=== PATIENT | male | born 1985 | race African-American/Black ===

== ENCOUNTER 2017-04-03 13:22 | Emergency (ER) | payer OTHER ==
[2017-04-03 15:26] LABS: Hematocrit 49 % (42-52); Hemoglobin 15.8 g/dl (14.0-18.0); Mean Corpuscular HGB Conc 33 g/dl (31-36); Mean Corpuscular Hemoglobin 30 pg (27-31); Mean Corpuscular Volume 92 fL (80-94); Mean Platelet Volume 9 um3 (7.4-10.4); Red Blood Count 5.25 10^6/ul (4.0-5.4); Red Cell Distribution Width 13 % (10.5-15); White Blood Count 6.7 10^3/ul (3.5-10.8)
[2017-04-03 15:37] LABS: ALT 38 U/L (7-52); AST 31 U/L (13-39); Albumin 4.5 g/dL (3.2-5.2); Alkaline Phosphatase 47 U/L (34-104); Anion Gap 10 mmol/L (2-11); BUN/Creatinine Ratio 13.3 (8-20); Blood Urea Nitrogen 14 mg/dL (6-24); C Reactive Protein < 1.00 mg/L (< 5.00); CO2 Carbon Dioxide 24 mmol/L (22-32); Calcium 9.6 mg/dL (8.6-10.3); Chloride 102 mmol/L (101-111); EGFR African American 107.4 (>60); EGFR Non-African American 83.5 (>60); Globulin 3.1 g/dL (2-4); Glucose 65 mg/dL (70-100); Lipase 16 U/L (11.0-82.0); Potassium 4.2 mmol/L (3.5-5.0); Sodium 136 mmol/L (133-145); Total Protein 7.6 g/dL (6.4-8.9)
[2017-04-03 15:38] LABS: Troponin I 0.01 ng/mL (<0.04)
--- NOTE | 2017-04-03 15:47 | RAD ---
Indication: Chest pain. 2 views of the chest including dual energy PA views demonstrate no mediastinal shift. Heart is of normal size and configuration. Lung heaton demonstrate no pleural fluid, pneumonia or pneumothorax. IMPRESSION: No active cardiopulmonary disease is noted.
[2017-04-03] MEDS ORDERED: Ketorolac INJ* 30 MG/ML 1 ML VIAL IV ONE (18:26)
[2017-04-03] MEDS ORDERED: Sucralfate TAB* 1 GM PO ONE (20:13)
[2017-04-03] MEDS ORDERED: Iohexol 300* (CONTRAST) 10 ML SDV IV ONE (21:37)
[2017-04-03] MEDS ORDERED: Pantoprazole IV* 40 MG IV ONE (21:48)
--- NOTE | 2017-04-03 21:48 | ED ---
Samuel Doyle Thomas, scribed for Owen Bettencourt MD on 04/03/17 at 1521 . HPI Chest Pain - HPI Summary HPI Summary: The pt is a 31 y/o M accompanied by police and presenting to the ED c/o L-sided CP that began this AM at 07:00 when he woke up. The pain radiates to his LUQ. The pain is rated 7/10. The pain is described as burning and sharp. The pain is aggravated and alleviated by nothing. The patient took [employer] HE[employer]PER[employer]. Pt additionally c/o dizziness, numbness (R arm). Pt denies nausea, SOB, and diaphoresis. He is not on any meds at this time. He is an inmate at [facility]. - History of Current Complaint Chief Complaint: EDChestPainROMI Time Seen by Provider: 04/03/17 15:13 Hx Obtained From: Patient, Other: - police present in the room Onset/Duration: Started Hours Ago - this AM when he woke up Timing: Constant Current Severity: Moderate Pain Intensity: 7 Pain Scale Used: 0-10 Numeric Chest Pain Radiates: Yes Chest Pain Radiates To:: Other - LUQ Character: Burning, Sharp/Stabbing Aggravating Factor(s): Nothing Alleviating Factor(s): Nothing Associated Signs and Symptoms: Positive: Chest Pain, Numbness - R arm, Dizziness. Negative: Shortness of Breath, Diaphoresis, Nausea - Allergy/Home Medications Allergies/Adverse Reactions: Allergies Allergy/AdvReac Type Severity Reaction Status Date / Time No Known Allergies Allergy Verified 04/03/17 13:25 Home Medications: Home Medications Mirtazapine TAB* [Remeron TAB*] 15 mg PO BEDTIME 04/03/17 [History Confirmed 12/15] PMH/Surg Hx/FS Hx/Imm Hx Previously Healthy: No Cardiovascular History: Reports: Hx Hypertension GI History: Reports: Hx Ulcer - Surgical History Surgery Procedure, Year, and Place: When asked his surgical history, the patient does not know Infectious Disease History: No Infectious Disease History: Denies: Traveled Outside the [place] in Last 30 Days - Family History Known Family History: Positive: Other - both his parents when he was young but he is unaware of FHx - Social History Lives: [place] - inmate at [facility] Alcohol Use: None Substance Use Type: Reports: None Smoking Status (MU): Never Smoked Tobacco Review of Systems Negative: Fever, Skin Diaphoresis Positive: Chest Pain - 7/10, sharp/burning, began this AM at 07:00, radiates to LUQ Negative: Shortness Of Breath Negative: Nausea Neurological: Other - POS: dizziness Positive: Numbness - R arm All Other Systems Reviewed And Are Negative: Yes Physical Exam Triage Information Reviewed: Yes Vital Signs On Initial Exam: Initial Vitals Temp Pulse Resp BP Pulse Ox 97.9 F 82 16 145/81 98 04/03/17 13:25 04/03/17 13:25 04/03/17 13:25 04/03/17 13:25 04/03/17 13:25 Vital Signs Reviewed: Yes Appearance: Positive: Well-Appearing, Pain Distress Skin: Positive: Warm, Skin Color Reflects Adequate Perfusion, Dry Head/Face: Positive: Normal Head/Face Inspection Eyes: Positive: Normal ENT: Positive: Normal ENT inspection Neck: Positive: Supple, Nontender Respiratory/Lung Sounds: Positive: Clear to Auscultation, Breath Sounds Present Cardiovascular: Positive: RRR Abdomen Description: Positive: Nontender, Soft Bowel Sounds: Positive: Present Musculoskeletal: Positive: Normal Neurological: Positive: Normal Psychiatric: Positive: Normal, Affect/Mood Appropriate - Jailene Coma Scale Coma Scale Total: 15 Diagnostics - Vital Signs Vital Signs Temp Pulse Resp BP Pulse Ox 04/03/17 14:32 98.9 F 84 16 126/80 98 04/03/17 13:25 97.9 F 82 16 145/81 98 - Laboratory Lab Results: Lab Results 04/03/17 04/03/17 04/03/17 Range/Units 14:45 14:45 14:45 WBC 6.7 (3.5-10.8) 10^3/ul RBC 5.25 (4.0-5.4) 10^6/ul Hgb 15.8 (14.0-18.0) g/dl Hct 49 (42-52) % MCV 92 (80-94) fL MCH 30 (27-31) pg MCHC 33 (31-36) g/dl RDW 13 (10.5-15) % Plt Count 301 (150-450) 10^3/ul MPV 9 (7.4-10.4) um3 Neut % (Auto) 60.8 (38-83) % Lymph % (Auto) 25.0 (25-47) % Charlton % (Auto) 7.5 (1-9) % Eos % (Auto) 5.9 (0-6) % Baso % (Auto) 0.8 (0-2) % Absolute Neuts (auto) 4.1 (1.5-7.7) 10^3/ul Absolute Lymphs (auto) 1.7 (1.0-4.8) 10^3/ul Absolute Monos (auto) 0.5 (0-0.8) 10^3/ul Absolute Eos (auto) 0.4 (0-0.6) 10^3/ul Absolute Basos (auto) 0.1 (0-0.2) 10^3/ul Absolute Nucleated RBC 0.01 10^3/ul Nucleated RBC % 0.1 Sodium 136 (133-145) mmol/L Potassium 4.2 (3.5-5.0) mmol/L Chloride 102 (101-111) mmol/L Carbon Dioxide 24 (22-32) mmol/L Anion Gap 10 (2-11) mmol/L BUN 14 (6-24) mg/dL Creatinine 1.05 (0.67-1.17) mg/dL Est GFR ( Amer) 107.4 (>60) Est GFR (Non-Af Amer) 83.5 (>60) BUN/Creatinine Ratio 13.3 (8-20) Glucose 65 L (70-100) mg/dL Lactic Acid 1.3 (0.5-2.0) mmol/L Calcium 9.6 (8.6-10.3) mg/dL Total Bilirubin 1.40 H (0.2-1.0) mg/dL AST 31 (13-39) U/L ALT 38 (7-52) U/L Alkaline Phosphatase 47 (34-104) U/L Troponin I 0.01 (<0.04) ng/mL C-Reactive Protein < 1.00 (< 5.00) mg/L Total Protein 7.6 (6.4-8.9) g/dL Albumin 4.5 (3.2-5.2) g/dL Globulin 3.1 (2-4) g/dL Albumin/Globulin Ratio 1.5 (1-3) Lipase 16 (11.0-82.0) U/L /12/15 Range/Units 19:35 WBC (3.5-10.8) 10^3/ul RBC (4.0-5.4) 10^6/ul Hgb (14.0-18.0) g/dl Hct (42-52) % MCV (80-94) fL MCH (27-31) pg MCHC (31-36) g/dl RDW (10.5-15) % Plt Count (150-450) 10^3/ul MPV (7.4-10.4) um3 Neut % (Auto) (38-83) % Lymph % (Auto) (25-47) % Charlton % (Auto) (1-9) % Eos % (Auto) (0-6) % Baso % (Auto) (0-2) % Absolute Neuts (auto) (1.5-7.7) 10^3/ul Absolute Lymphs (auto) (1.0-4.8) 10^3/ul Absolute Monos (auto) (0-0.8) 10^3/ul Absolute Eos (auto) (0-0.6) 10^3/ul Absolute Basos (auto) (0-0.2) 10^3/ul Absolute Nucleated RBC 10^3/ul Nucleated RBC % Sodium (133-145) mmol/L Potassium (3.5-5.0) mmol/L Chloride (101-111) mmol/L Carbon Dioxide (22-32) mmol/L Anion Gap (2-11) mmol/L BUN (6-24) mg/dL Creatinine (0.67-1.17) mg/dL Est GFR ( Amer) (>60) Est GFR (Non-Af Amer) (>60) BUN/Creatinine Ratio (8-20) Glucose (70-100) mg/dL Lactic Acid (0.5-2.0) mmol/L Calcium (8.6-10.3) mg/dL Total Bilirubin (0.2-1.0) mg/dL AST (13-39) U/L ALT (7-52) U/L Alkaline Phosphatase (34-104) U/L Troponin I 0.00 (<0.04) ng/mL C-Reactive Protein (< 5.00) mg/L Total Protein (6.4-8.9) g/dL Albumin (3.2-5.2) g/dL Globulin (2-4) g/dL Albumin/Globulin Ratio (1-3) Lipase (11.0-82.0) U/L Result Diagrams: 04/03/17 14:45 04/03/17 14:45 Lab Statement: Any lab studies that have been ordered have been reviewed, and results considered in the medical decision making process. - Radiology CXR Xray Interpretation: No Acute Changes - no active cardiopulmonary disease is noted Radiology Interpretation Completed By: Radiologist - EKG 13:35 Cardiac Rate: NL - 90 BPM EKG Interpretation: NSR. Some baseline artifact. Nonspecific changes inferiorly. 13:32 Cardiac Rate: Tachycardia - 129 BPM EKG Interpretation: Sinus rhythm. Some baseline artificats. Nonspecific changes inferiorly. Re-Evaluation - Re-Evaluation First Eval Re-Evaluation Time: 20:45 Change: Worse Comment: "My LUQ is on fire" Chest Pain Course/Dx - Course Course Of Treatment: Mr. Khalil presented with LUQ burning pain that did not respond to the medications that he was given. His lab W/U was unremarkable and he is getting a CT to R/U any missed pathology. I expect he will be D/C'd back after that. - Diagnoses Provider Diagnoses: Chest pain, Abdominal pain Discharge - Discharge Plan Condition: Stable Disposition: HOME Patient Education Materials: Chest Pain (ED), Epigastric Pain (ED) The documentation as recorded by the Samuel drummond Thomas accurately reflects the service I personally performed and the decisions made by me, Owen Bettencourt MD.
[2017-04-04 01:35] VITALS: BP 150/88
--- NOTE | 2017-04-04 02:42 | ED ---
Reinaldo Doyle Alfonso, scribed for Mika Villagomez MD on 04/04/17 at 0123 . Progress - Progress Note Progress Note: Pt was signed out from Dr. Bettencourt, pending disposition, awaiting CT A/P. CT A/P reveals no evidence of acute pathology. His condition is stable and will be discharged back to his facility with Dx of chest pain and abdominal pain. Paper work for the prision filled out. Lab and imaging results given to patient. - Results/Orders Results/Orders: CT A/P reveals, per radiologist, no evidence of acute pathology. Course/Dx - Course Course Of Treatment: Mr. Khalil presented with LUQ burning pain that did not respond to the medications that he was given. His lab W/U was unremarkable and he is getting a CT to R/U any missed pathology. I expect he will be D/C'd back after that. - Diagnoses Provider Diagnoses: Chest pain, Abdominal pain The documentation as recorded by the jeffryibeReinaldo Alfonso accurately reflects the service I personally performed and the decisions made by me, Mika Villagomez MD.
--- NOTE | 2017-04-04 08:39 | RAD ---
INDICATION: LEFT upper abdominal pain which began as chest pain. Vomiting. Occasional diarrhea. Weakness. COMPARISON: Chest radiograph of the same date. TECHNIQUE: Multidetector CT images were obtained from the lung bases to the ischial tuberosities with 103 mL Omnipaque 300 IV and oral contrast. Multiplanar reformation. REPORT: Unremarkable visualized inferior thorax. Decreased density of the liver relative to the spleen consistent with hepatosteatosis. No focal hepatic lesions or biliary dilatation evident. No CT abnormality of the gallbladder, pancreas, spleen. No CT abnormality of the upper GI, small bowel, or diminutive appendix visualized anterior to the RIGHT psoas muscle. Negative for ascites or free air. Small periumbilical hernia containing part of a small bowel loop without visualized bowel wall thickening, significant inflammatory change, or obstruction. Normal adrenal glands. Unremarkable kidneys with symmetric nephrograms and pyelograms. No abnormality evident along the course of the nondilated ureters. Unremarkable distended urinary bladder. Negative for lymphadenopathy. Normal diameter abdominal aorta and iliac arteries. Physiologic distention of the IVC. Negative for suspicious osseous lesions. IMPRESSION: 1. Hepatic steatosis. 2. Negative for appendicitis. 3. Small periumbilical hernia containing part of a small bowel loop without visualized bowel wall thickening, significant inflammatory change, or obstruction.
== END 2017-04-04 01:38 | disposition home or self-care (01) ==
LOC: ED 13:22
DX: R07.9 Chest pain, unspecified (principal); R10.9 Unspecified abdominal pain; R42 Dizziness and giddiness; R20.0 Anesthesia of skin
CPT/HCPCS: 36415; 71020; 74177; 80053; 83605; 83690; 84484; 85025; 86140; 93005; 96374; 96375; 99283; A9270-GY; J1885; Q9967